=== PATIENT | male | born 1990 | race Caucasian/White ===

== ENCOUNTER 2018-09-27 16:59 | Emergency (ER) | payer MEDICAID ==
[~2018-09-27] VITALS: Ht 167.6 cm; Wt 98.9 kg
[2018-09-27 17:04] VITALS: Ht 167.6 cm; Wt 98.9 kg
[2018-09-27 17:34] LABS: BASOPHIL % 0.5 % (0-2); PLATELET COUNT 316 x10^3mcL (130-400); RED CELL DISTRIBUTION WIDTH 13.4 % (11.5-14.5)
[2018-09-27 17:42] LABS: AMPHETAMINE QUAL UR NONE DETECTED (See below)
[2018-09-27 17:43] LABS: CALCIUM 9.6 mg/dL (8.5-10.1); CARBON DIOXIDE 30.4 mmol/L (21-32); CHLORIDE SERUM 100 mmol/L (98-107); GFR1 > 60 mL/min; GLUCOSE SERUM 105 mg/dL (74-106); SODIUM SERUM 139 mmol/L (136-145)
[2018-09-27 17:48] LABS: ALBUMIN 4.4 g/dL (3.4-5.0); ALKALINE PHOSPHATASE 110 U/L (46-116); ALT/SGPT 27 U/L (16-63); AST/SGOT 16 U/L (15-37); BILIRUBIN TOTAL 0.7 mg/dL (0.20-1.00); TOTAL PROTEIN, SERUM 8.5 g/dL (6.4-8.2)
[2018-09-27 18:01] LABS: T3 TOTAL 1.17 ng/mL
[2018-09-27 18:07] LABS: FREE T4 1.08 ng/dL (0.76-1.46); FREE THYROXINE INDEX 3.4 ug/dL (1.4-4.5); T4(THYROXINE) 8.5 ug/dL (4.7-13.3)
[2018-09-27 19:03] VITALS: BP 130/72
== END 2018-09-27 19:03 | disposition home or self-care (01) ==
LOC: ED 16:59
PROVIDERS: Emergency Medicine
DX: R07.89 Other chest pain (principal); R68.84 Jaw pain; R42 Dizziness and giddiness
CPT/HCPCS: 36415; 84439; Q0092

== ENCOUNTER 2019-01-10 18:07 | Emergency (ER) | payer SELFPAY ==
[~2019-01-10] VITALS: Ht 172.7 cm; Wt 96.2 kg
[2019-01-10 18:28] VITALS: BP 159/106
== END 2019-01-10 20:27 | disposition home or self-care (01) ==
LOC: ED 18:07
DX: J02.9 Acute pharyngitis, unspecified (principal); H10.13 Acute atopic conjunctivitis, bilateral; J30.9 Allergic rhinitis, unspecified
CPT/HCPCS: 87804